=== PATIENT | male | born 1950 | race Two or more races ===

== ENCOUNTER 2017-04-27 17:02 | Inpatient (IN) | payer OTHER ==
[~2017-04-27] VITALS: Ht 203.2 cm; Wt 50.0 kg
[2017-04-27 19:04] LABS: HEMATOCRIT 29.3 % (38.0-50.0); MCH 28.2 PG (29.0-34.0); MCHC 34.5 G/DL (30.0-36.0); MCV 81.8 FL (86-99); MEAN PLAT.VOLUME 9.3 uM^3 (9.0-12.4); PLATELET COUNT 383 K/uL (156-360); RBC DIS.WIDTH-CV 17.3 % (11.8-14.6); RBC DIS.WIDTH-SD 51.6 % (39-53); RED BLOOD COUNT 3.58 M/uL (4.00-5.50); WHITE BLOOD COUNT 6.9 K/uL (4.1-10.2)
[2017-04-27 19:08] LABS: CHLORIDE 105 mEq/L (99-109); POTASSIUM 3.6 mEq/L (3.7-5.4); SODIUM 143 mEq/L (136-147)
[2017-04-27 19:09] LABS: GLUCOSE 96 mg/dL (70-99)
[2017-04-27 19:11] LABS: ANION GAP 16 MEQ/L (2-14)
[2017-04-27 19:13] LABS: GFR ESTIMATE (CALCULATED) > 59 mL/min/
[2017-04-27 19:14] LABS: UREA NITROGEN (BUN) 15 mg/dL (9-23)
[2017-04-27 23:23] LABS: TOTAL BILIRUBIN 0.9 mg/dL (0.0-1.0)
[2017-04-27 23:24] LABS: ALKALINE PHOSPHATASE 168 IU/L (3-129)
[2017-04-27 23:27] LABS: DIRECT BILIRUBIN 0.5 mg/dL (0.0-0.3)
[2017-04-28 02:43] LABS: IRON 48 MCG/DL (35-150)
[2017-04-28 06:39] LABS: HEMATOCRIT 24.5 % (38.0-50.0); MCH 28.2 PG (29.0-34.0); MCHC 34.3 G/DL (30.0-36.0); MCV 82.2 FL (86-99); MEAN PLAT.VOLUME 8.8 uM^3 (9.0-12.4); PLATELET COUNT 322 K/uL (156-360); RBC DIS.WIDTH-CV 17.5 % (11.8-14.6); RBC DIS.WIDTH-SD 51.7 % (39-53); RED BLOOD COUNT 2.98 M/uL (4.00-5.50); WHITE BLOOD COUNT 4.9 K/uL (4.1-10.2)
[2017-04-28 06:49] LABS: CHLORIDE 108 mEq/L (99-109); POTASSIUM 3.4 mEq/L (3.7-5.4); SODIUM 140 mEq/L (136-147)
[2017-04-28 06:51] LABS: GLUCOSE 78 mg/dL (70-99)
[2017-04-28 06:52] LABS: ANION GAP 11 MEQ/L (2-14)
[2017-04-28 06:53] LABS: ADD MIUA? YES; BILIRUBIN NEGATIVE; BLOOD NEGATIVE; COLOR YELLOW ((YELLOW)); GLUCOSE (STRIP) NEGATIVE; KETONES NEGATIVE; LEUKOCYTES TRACE; NITRITE NEGATIVE; PROTEIN (STRIP) NEGATIVE
[2017-04-28 06:55] LABS: GFR ESTIMATE (CALCULATED) > 59 mL/min/
[2017-04-28 06:56] LABS: UREA NITROGEN (BUN) 12 mg/dL (9-23)
[2017-04-28 07:10] LABS: BACTERIA RARE /HPF; EPITHELIAL CELLS NONE SEEN /HPF; MUCUS TRACE /LPF; UCUL ADDED? YES
[2017-04-28 07:36] LABS: SPECIFIC GRAVITY 1.084 (1.000-1.030)
[2017-04-28 11:30] VITALS: BP 141/69
[2017-04-28 11:38] LABS: HIV INDEX 0.13; HIV-1/2 AB/AG COMBO Nonreactive
[2017-04-28 11:48] LABS: MAGNESIUM 1.6 mg/dl (1.3-2.7)
[2017-04-28 15:08] LABS: LACTATE DEHYDROGENASE 281 IU/L (20-246)
[2017-04-28 15:56] VITALS: BP 121/72
[2017-04-28 20:36] VITALS: BP 120/72
[2017-04-29 00:23] VITALS: BP 118/59
[2017-04-29 04:03] VITALS: BP 112/65
[2017-04-29 07:15] LABS: HEMATOCRIT 22.3 % (38.0-50.0); MCH 28.4 PG (29.0-34.0); MCHC 34.1 G/DL (30.0-36.0); MCV 83.2 FL (86-99); MEAN PLAT.VOLUME 9.6 uM^3 (9.0-12.4); NRBC (%) 0.4 /100 WBC (0-0); PLATELET COUNT 292 K/uL (156-360); RBC DIS.WIDTH-CV 18.3 % (11.8-14.6); RBC DIS.WIDTH-SD 54.3 % (39-53); RED BLOOD COUNT 2.68 M/uL (4.00-5.50)
[2017-04-29 07:39] LABS: ANION GAP 8 MEQ/L (2-14); CHLORIDE 109 MEQ/L (99-109); GFR ESTIMATE (CALCULATED) > 59 mL/min/; GLUCOSE 75 mg/dL (70-99); SAMPLE HEMOLYSIS CHECK 0; SAMPLE ICTERIC CHECK 0; SAMPLE LIPEMIA CHECK 0; SODIUM 140 MEQ/L (136-147); UREA NITROGEN (BUN) 10 mg/dL (9-23)
[2017-04-29 08:06] VITALS: BP 104/61
[2017-04-29 11:30] VITALS: BP 111/88
[2017-04-29 12:25] LABS: HEMATOCRIT 23.6 % (38.0-50.0); MCV 84.3 FL (86-99)
[2017-04-29 15:15] VITALS: BP 123/75
[2017-04-29 20:33] VITALS: BP 117/68
[2017-04-30] VITALS (7 sets, daily range): BP systolic 108–161; BP diastolic 66–87
[2017-04-30 08:09] LABS: ANION GAP 7 MEQ/L (2-14); CHLORIDE 106 MEQ/L (99-109); GFR ESTIMATE (CALCULATED) > 59 mL/min/ (58.99-99999); GLUCOSE 85 mg/dL (70-99); MAGNESIUM 1.4 mg/dl (1.3-2.7); POTASSIUM 3.9 MEQ/L (3.7-5.4); SAMPLE HEMOLYSIS CHECK 0; SAMPLE ICTERIC CHECK 0; SAMPLE LIPEMIA CHECK 0; SODIUM 139 MEQ/L (136-147); UREA NITROGEN (BUN) 11 mg/dL (9-23)
[2017-05-01 03:33] VITALS: BP 121/75
[2017-05-01 08:13] LABS: EOSINOPHIL (%) 0.5 % (0-5); HEMATOCRIT 23.5 % (38.0-50.0); IMMATURE GRANULOCYTE (%) 4.1 % (0.0-0.7); IMMATURE GRANULOCYTE COUNT 0.3 K/uL; INSTRUMENT ABS NEUTROPHIL CT 3.6 K/uL; LYMPHOCYTE COUNT 1.6 K/uL (1.0-2.8); MCH 29.1 PG (29.0-34.0); MCHC 34.5 G/DL (30.0-36.0); MCV 84.5 FL (86-99); MONOCYTE (%) 9.9 % (3-12); MONOCYTE COUNT 0.6 K/uL (0-0.8); NEUTROPHIL (%) 58.8 % (45-76); NEUTROPHIL COUNT 3.6 K/uL (1.8-6.4); PLATELET COUNT 324 K/uL (156-360); RBC DIS.WIDTH-CV 18.8 % (11.8-14.6); RBC DIS.WIDTH-SD 56.3 % (39-53); RED BLOOD COUNT 2.78 M/uL (4.00-5.50); WHITE BLOOD COUNT 6.2 K/uL (4.1-10.2)
[2017-05-01 08:15] LABS: ANION GAP 3 MEQ/L (2-14); CHLORIDE 108 MEQ/L (99-109); GFR ESTIMATE (CALCULATED) > 59 mL/min/ (58.99-99999); GLUCOSE 90 mg/dL (70-99); POTASSIUM 4.4 MEQ/L (3.7-5.4); SAMPLE HEMOLYSIS CHECK 0; SAMPLE ICTERIC CHECK 0; SAMPLE LIPEMIA CHECK 0; SODIUM 139 MEQ/L (136-147); UREA NITROGEN (BUN) 13 mg/dL (9-23)
[2017-05-01 08:21] VITALS: BP 110/65
[2017-05-01 08:34] LABS: MAGNESIUM 1.7 mg/dl (1.3-2.7)
[2017-05-01] MEDS ORDERED: BICALUTAMIDE50 MG PO (11:06)
[2017-05-01] MEDS ORDERED: POTASSIUM CHLO20 ME2 PO (11:08)
[2017-05-01] MEDS ORDERED: DRONABINOL5 MG PO (11:09)
[2017-05-01] MEDS ORDERED: FAMOTIDINE20 MG PO (11:10)
[2017-05-01] MEDS ORDERED: FINASTERIDE5 MG PO (11:10)
[2017-05-01] MEDS ORDERED: THIAMINE HCL100 MG PO (11:11)
[2017-05-01 13:11] VITALS: BP 112/60
== END 2017-05-01 14:14 | DRG 722 ==
LOC: EME 17:02 → EDOF 22:53 → 2EAST 22:53 → ENRESERV 22:56 → 2EAST 04-28 11:05
PROVIDERS: Emergency Medicine; Hospitalist; Physician Assistant; Physician Assistant Medical
DX: C61 Malignant neoplasm of prostate (principal); E43 Unspecified severe protein-calorie malnutrition; C79.51 Secondary malignant neoplasm of bone; R64 Cachexia; I50.9 Heart failure, unspecified; C78.7 Secondary malignant neoplasm of liver and intrahepatic bile duct; N30.00 Acute cystitis without hematuria; I48.0 Paroxysmal atrial fibrillation; I42.0 Dilated cardiomyopathy; N40.1 Benign prostatic hyperplasia with lower urinary tract symptoms; R31.9 Hematuria, unspecified; D63.8 Anemia in other chronic diseases classified elsewhere; E05.00 Thyrotoxicosis with diffuse goiter without thyrotoxic crisis or storm; E86.0 Dehydration; M25.551 Pain in right hip; I11.0 Hypertensive heart disease with heart failure; E87.6 Hypokalemia; R62.7 Adult failure to thrive; E05.90 Thyrotoxicosis, unspecified without thyrotoxic crisis or storm; L30.9 Dermatitis, unspecified; B35.1 Tinea unguium; W19.XXXA Unspecified fall, initial encounter; D50.9 Iron deficiency anemia, unspecified; Z66 Do not resuscitate; Z89.021 Acquired absence of right finger(s); Z87.01 Personal history of pneumonia (recurrent); Z91.19 Patient's noncompliance with other medical treatment and regimen; Z87.891 Personal history of nicotine dependence; Z82.49 Family history of ischemic heart disease and other diseases of the circulatory system; Z68.1 Body mass index [BMI] 19.9 or less, adult
CPT/HCPCS: 70450; 71260; 73501; 73552; 73590; 74177; 80048; 80076; 81003; 82306; 82607; 82746; 83540; 83615; 83735; 84100; 84403; 84443; 84466; 85014; 85018; 85025; 85027; 86703; 87077; 87086; 87186; 93306; 99281; 99285; A6214; G0103; J0295; J0456; J1644; J3475; J7030; J7050; J9217; Q0167